=== PATIENT | male | born 1980 | race Native Hawaiian/Other Pacific Islander ===

== ENCOUNTER 2018-09-21 14:14 | Outpatient (CLI) | payer BC | END 2018-09-21 23:59 | disposition home or self-care (01) | LOC: LABW 14:14 | DX: R07.9 Chest pain, unspecified (principal) | CPT/HCPCS: 36415; 82550; 82553; 84484 ==

== ENCOUNTER 2021-05-06 15:16 | Outpatient (CLI) | payer OTHER | END 2021-05-06 19:02 | disposition home or self-care (01) | LOC: RAD 15:16 | PROVIDERS: ATTEND Nurse Practitioner Family | DX: M54.9 Dorsalgia, unspecified (principal); M79.604 Pain in right leg; R20.0 Anesthesia of skin ==